=== PATIENT | male | born 1960 | race Two or more races ===

== ENCOUNTER 2021-12-04 21:05 | Emergency (ER) | payer OTHER ==
[~2021-12-04] VITALS: Ht 175.3 cm; Wt 76.0 kg
[2021-12-05] MEDS ORDERED: IBUPROFEN 600MG TABLET PO ONE (00:15)
[2021-12-05] MEDS ORDERED: GUAI-453 MT (00:29)
[2021-12-05] MEDS ORDERED: IBUP-2029 MT (00:29)
[2021-12-05 01:00] VITALS: BP 124/78
== END 2021-12-05 01:01 | disposition home or self-care (01) ==
LOC: ER 21:05
DX: R05.9 Cough, unspecified (principal); R42 Dizziness and giddiness; Z20.822 Contact with and (suspected) exposure to COVID-19
CPT/HCPCS: 71045; 87426; 99284; C9803